=== PATIENT | female | born 1970 | race Caucasian/White ===

== ENCOUNTER 2018-07-20 06:42 | Emergency (ER) | payer MEDICAID ==
[~2018-07-20] VITALS: Ht 154.9 cm; Wt 54.9 kg
[2018-07-20 06:58] VITALS: BP 96/64; Ht 154.9 cm; Wt 54.9 kg
== END 2018-07-20 09:13 | disposition left against medical advice (07) ==
LOC: ED 06:42
DX: Z53.21 Procedure and treatment not carried out due to patient leaving prior to being seen by health care provider (principal)

== ENCOUNTER 2018-07-21 14:09 | Emergency (ER) | payer MEDICAID ==
[~2018-07-21] VITALS: Ht 154.9 cm; Wt 52.2 kg
[2018-07-21 14:15] VITALS: Ht 154.9 cm; Wt 52.2 kg
[2018-07-21 17:20] VITALS: BP 100/62
== END 2018-07-21 17:20 | disposition home or self-care (01) ==
LOC: ED 14:09
DX: N76.0 Acute vaginitis (principal); L02.214 Cutaneous abscess of groin; E11.9 Type 2 diabetes mellitus without complications; F17.210 Nicotine dependence, cigarettes, uncomplicated; Z71.6 Tobacco abuse counseling
CPT/HCPCS: 99406; J2001